=== PATIENT | female | born 1985 | race Hispanic/Latino ===

== ENCOUNTER 2019-01-18 21:38 | Emergency (ER) | payer SELFPAY ==
[2019-01-18 22:22] LABS: Bilirubin Negative (Negative); Blood, Urine Small (Negative); Clarity Clear (Clear); Glucose, Urine (Dipstick) Negative (Negative); Leukocyte Negative (Negative); Nitrite Negative (Negative); Protein, Urine (Dipstick) Negative (Neg-Trace); Urobilinogen 0.2 mg/dL (0.2-1.0)
[2019-01-18 22:24] LABS: Specific Gravity, Urine 1.022 (1.002-1.036)
[2019-01-18 22:43] LABS: #Basophils 0.1 thou/uL (0.0-0.2); #Eosinphils 0.1 thou/uL (0.0-0.7); #Lymphocytes 2.8 thou/uL (1.20-3.40); #Monocytes 0.5 thou/uL (0.11-0.59); #Neutrophils 3.7 thou/uL (1.40-6.50); %Basophils 0.8 % (0.0-1.0); %Eosinophils 0.7 % (0.0-10.0); %Lymphocytes 39.4 % (21.0-51.0); %Monocytes 7.3 % (0.0-10.0); %Neutrophils 51.8 % (42.0-75.0); Hemoglobin 9.9 g/dL (12.0-16.0); Mean Corpuscular HGB CONC 31.2 g/dL (32.0-36.0); Mean Corpuscular Hemoglobin 22.7 pg (27.0-31.0); Mean Corpuscular Volume 72.8 fL (78.0-98.0); Mean Platelet Volume 8.2 fL (7.4-10.4); Platelet Count 298 thou/uL (130-400); RBC Distribution Width 18.3 % (11.5-14.5); Red Blood Cell (RBC) Count 4.38 mill/uL (4.20-5.40); White Blood Cell (WBC) Count 7.2 thou/uL (4.8-10.8)
[2019-01-18 22:47] LABS: Bacteria/HPF 1+ HPF (None Seen); Other Microscopic Description 1+ MUCOUS STRANDS; RBC/HPF 0-3 HPF (0-3); Squamous Epithelial 0-3 HPF (0-3); Transitional Epithelial 0-3 HPF (0-3); WBC/HPF 0-3 HPF (0-3)
[2019-01-18 22:59] LABS: Anisocytosis SLIGHT = 6-15 cells (100X) (0-5/hpf); MDiff Complete? YES; Microcytosis SLIGHT = 6-15 cells (100X) (0-5/hpf); Platelet Morphology Comment Appears Adequate
--- NOTE | 2019-01-18 23:49 | ULT ---
US Pelvic Transvag W Doppler History: Pain Comparison: None. Findings: Real-time grayscale, color, and spectral analysis of the pelvis was performed transabdomina l approach. Single viable intrauterine with heart rate documented at 157 bpm. Both ovaries are normal. The pole crown-rump length measures 1.27 cm, 7 week 3 day. The gestational sac diameter is 1.71 cm, 6 weeks 4 day. Average ultrasound age is 7 weeks 0 day. There is an anterior uterine body large 5 cm fibroid. Impression: 1. Single viable intrauterine with average ultrasound age 7 week 0 day with estimated date of delivery September 06, 2021. 2. Large anterior uterine body fibroid. 3. Small subchorionic hemorrhage.
[2019-01-20 23:35] LABS: Chlamydia by PCR Not Detected (NotDetected); GC by PCR Not Detected (NotDetected)
== END 2019-01-19 00:17 | disposition home or self-care (01) ==
LOC: SCSER 21:38
DX: O20.0 Threatened abortion (principal); O99.011 Anemia complicating pregnancy, first trimester; O34.11 Maternal care for benign tumor of corpus uteri, first trimester; D25.9 Leiomyoma of uterus, unspecified; Z3A.01 Less than 8 weeks gestation of pregnancy
CPT/HCPCS: 36415; 76856; 81003; 81015; 84702; 85025; 86900; 86901; 87480; 87491; 87510; 87591; 87660

== ENCOUNTER 2019-01-22 17:40 | Emergency (ER) | payer MEDICAID, SELFPAY | END 2019-01-22 18:57 | disposition home or self-care (01) | LOC: SCSER 17:40 | DX: O20.9 Hemorrhage in early pregnancy, unspecified (principal); Z3A.01 Less than 8 weeks gestation of pregnancy | CPT/HCPCS: 36415; 84702; 99284 ==

== ENCOUNTER 2019-08-21 10:45 | Inpatient (IN) | payer OTHER ==
[2019-08-21 11:28] VITALS: BMI 35.9
[2019-08-21] MEDS: Lactated Ringer's 1,000 ML IV SCH ×3 (11:30→17:46)
[2019-08-21] MEDS ORDERED: Ibuprofen 800 MG TAB PO PRN (12:13)
[2019-08-21] MEDS ORDERED: Docusate 100 MG CAP PO PRN (12:13)
[2019-08-21] MEDS ORDERED: Promethazine HCl 25 MG/ML VIAL IM PRN ×2 (12:13→17:53)
[2019-08-21] MEDS ORDERED: Lidocaine 1% (PF) 30 ML VIAL SC PRN (12:13)
[2019-08-21] MEDS ORDERED: hydrALAZINE 20 MG/ML VIAL SLOW IVP PRN ×2 (12:13→21:06)
[2019-08-21] MEDS ORDERED: NS / Oxytocin 40 units/1000ml 1,000 ML IV PRN (12:13)
[2019-08-21] MEDS ORDERED: Acetaminophen 500 MG TAB PO PRN (12:13)
[2019-08-21] MEDS ORDERED: HYDROcodone/Acetaminophen 5/325 mg Tablet PO PRN ×2 (12:13)
[2019-08-21] MEDS ORDERED: Ondansetron PF 4 MG/2 ML Vial IVP PRN ×3 (12:13→21:06)
[2019-08-21] MEDS ORDERED: Misoprostol 200 MCG TAB PR PRN (12:13)
[2019-08-21] MEDS ORDERED: Diphenoxylate HCl/Atropine Tablet PO PRN ×2 (12:13)
[2019-08-21] MEDS ORDERED: Butorphanol Tartrate 1 MG/ML VIAL SLOW IVP PRN (12:13)
[2019-08-21] MEDS ORDERED: Vancomycin HCl 1 GM in Premix Bag 1 BAG IVPB SCH (12:15)
[2019-08-21] MEDS ORDERED: NS w/ Oxytocin 10 units 500 ML IV SCH ×2 (12:15)
[2019-08-21 12:27] LABS: Hemoglobin 10.2 g/dL (12.0-16.0); Mean Corpuscular HGB CONC 31.5 g/dL (32.0-36.0); Mean Corpuscular Hemoglobin 22.7 pg (27.0-31.0); Mean Corpuscular Volume 72.1 fL (78.0-98.0); Mean Platelet Volume 9.9 fL (7.4-10.4); Platelet Count 299 thou/uL (130-400); RBC Distribution Width 19.1 % (11.5-14.5); White Blood Cell (WBC) Count 8.3 thou/uL (4.8-10.8)
[2019-08-21 12:55] LABS: HBSAg Index 0.31 S/CO (0-0.99); Hep B Surf Ag Non-Reactive S/CO (NonReactive); Syphilis Antibody Nonreactive (Nonreactive); Syphilis Antibody Index 0.05 S/CO (<1.00 Non-Reactive)
[2019-08-21] MEDS: Clindamycin/D5W 900 MG in Premix Bag 1 BAG IVPB SCH (13:10)
[2019-08-21] MEDS ORDERED: Lidocaine 2% MPF 10 ML AMP (For Epidural Use) ONE (13:48)
[2019-08-21] MEDS ORDERED: Fentanyl 4 mcg/Bup 0.1% Cadd 100 ML ONE (16:45)
[2019-08-21] MEDS ORDERED: Lidocaine 1% (PF) 30 ML VIAL ONE (17:51)
[2019-08-21] MEDS ORDERED: NS / Oxytocin 40 units/1000ml 0 ML ONE (17:51)
[2019-08-21] MEDS ORDERED: Misoprostol 200 MCG TAB ONE (17:52)
[2019-08-21] MEDS ORDERED: Methylergonovine 0.2 MG/ML VIAL ONE (17:52)
[2019-08-21] MEDS ORDERED: Carboprost 250 MCG/ML AMP ONE (17:52)
[2019-08-21] MEDS ORDERED: NS / Oxytocin 40 units/1000ml 1,000 ML ONE (17:52)
[2019-08-21] MEDS ORDERED: ePHEDrine/0.9% NaCl/PF SYRINGE 50 mg/10 ml SLOW IVP PRN (17:53)
[2019-08-21] MEDS ORDERED: diphenhydrAMINE 50 MG/ML VIAL IVP PRN (17:53)
[2019-08-21] MEDS ORDERED: Acetaminophen 325 MG TAB PO PRN (17:53)
[2019-08-21] MEDS ORDERED: Lactated Ringer's 500 ML IV PRN (17:53)
[2019-08-21] MEDS ORDERED: Naloxone HCl 0.4 mg/ml Vial IVP PRN ×2 (17:53)
[2019-08-21] MEDS ORDERED: Communication Order-Pharmacy FS SCH (18:00)
[2019-08-21] MEDS ORDERED: Fentanyl 4 mcg/Bupivacaine 0.1% Cassette 100 ML EPIDURAL SCH (18:00)
[2019-08-21] MEDS ORDERED: Benzocaine-Menthol 82.5 ML CAN TOP PRN (21:06)
[2019-08-21] MEDS ORDERED: Milk Of Magnesia 30 ML UDCUP PO PRN (21:06)
[2019-08-21] MEDS ORDERED: Acetaminophen/Codeine 30-300mg Tablet PO PRN (21:06)
[2019-08-21] MEDS ORDERED: Zolpidem Tartrate 5 MG TAB PO PRN (21:06)
[2019-08-21] MEDS ORDERED: Lanolin Ointment 7 GM TUBE TOP PRN (21:06)
[2019-08-21] MEDS ORDERED: diphenhydrAMINE 25 MG CAP PO PRN (21:06)
[2019-08-21] MEDS ORDERED: Bisacodyl 10 MG SUPP PR PRN (21:06)
[2019-08-21] MEDS ORDERED: Preparation H Ointment 28 GM TUBE PR PRN (21:06)
[2019-08-21] MEDS ORDERED: Misoprostol 200 MCG TAB VAG PRN (21:06)
[2019-08-21] MEDS ORDERED: NS / Oxytocin 40 units/1000ml 1,000 ML IV SCH (21:15)
[2019-08-22] MEDS: Clindamycin/D5W 900 MG in Premix Bag 1 BAG IVPB SCH (00:31)
[2019-08-22] MEDS: Ibuprofen 800 MG TAB PO SCH ×4 (00:32→21:37)
[2019-08-22] MEDS: Docusate Calcium (SURFAK) 240 MG CAP PO SCH ×2 (08:34→21:37)
[2019-08-22] MEDS: Prenatal Vitamin 1 TAB PO SCH (08:34)
[2019-08-22] MEDS: Ferrous Sulfate 325 MG TAB PO SCH ×2 (08:37→17:11)
[2019-08-22] MEDS ORDERED: Adacel (T-DAP) 0.5 ML SYRINGE IM ONE (09:00)
[2019-08-22] MEDS: Acetaminophen/Codeine 30-300mg Tablet PO PRN ×2 (12:24→21:37)
[2019-08-23] MEDS: Ibuprofen 800 MG TAB PO SCH (05:10)
[2019-08-23] MEDS: Ferrous Sulfate 325 MG TAB PO SCH (07:45)
[2019-08-23] MEDS: Prenatal Vitamin 1 TAB PO SCH (09:33)
[2019-08-23] MEDS: Docusate Calcium (SURFAK) 240 MG CAP PO SCH (09:33)
[2019-08-23 12:28] VITALS: BP 115/59; TEMP 98.6
== END 2019-08-23 13:35 | disposition home or self-care (01) | DRG 807 ==
LOC: L&D/OP 10:45 → L&D 12:00 → 3SW 23:58
PROVIDERS: ADMIT Obstetrics & Gynecology; ATTEND Obstetrics & Gynecology
PROC: 10D07Z6 Extraction of Products of Conception, Vacuum, Via Natural or Artificial Opening (ICD-10-PCS; principal; 2019-08-21)
PROC: 3E0234Z Introduction of Serum, Toxoid and Vaccine into Muscle, Percutaneous Approach (ICD-10-PCS; 2019-08-22)
DX: O99.824 Streptococcus B carrier state complicating childbirth (principal); Z3A.38 38 weeks gestation of pregnancy; Z37.0 Single live birth; Z88.0 Allergy status to penicillin; Z91.040 Latex allergy status; Z90.49 Acquired absence of other specified parts of digestive tract; Z23 Encounter for immunization; O99.013 Anemia complicating pregnancy, third trimester; D64.9 Anemia, unspecified
CPT/HCPCS: 51702; 86780; 86850; 86900; 86901; 87340; 90715; J0595; J2001; J2210; J2590; J3370; J3490

== ENCOUNTER 2022-11-08 09:23 | Outpatient (CLI) | payer OTHER | END 2022-11-08 09:24 | disposition home or self-care (01) | LOC: SCSRAD 09:23 | PROVIDERS: ATTEND Family Medicine | DX: S60.945D Unspecified superficial injury of left ring finger, subsequent encounter (principal) ==

== ENCOUNTER 2022-11-10 08:29 | Outpatient (CLI) | payer OTHER | END 2022-11-10 08:30 | disposition home or self-care (01) | LOC: BICMAMMO 08:29 | PROVIDERS: ATTEND Family Medicine | DX: N63.20 Unspecified lump in the left breast, unspecified quadrant (principal) | CPT/HCPCS: 77066; 77067; G0279 ==